=== PATIENT | male | born 1980 | race Asian ===

== ENCOUNTER 2022-06-10 14:44 | Emergency (ER) | payer OTHER ==
[~2022-06-10] VITALS: Ht 167.6 cm; Wt 55.0 kg
[2022-06-10 15:44] VITALS: BP 146/64
[2022-06-10] MEDS ORDERED: ATOR10TA PO (15:47)
[2022-06-10] MEDS ORDERED: ASPI-1450 PO (15:47)
[2022-06-10] MEDS ORDERED: AMLO2.5T96 PO (15:47)
[2022-06-10] MEDS ORDERED: ASPI-1444 PO (15:49)
[2022-06-10] MEDS ORDERED: OMEG1CAP31 PO (15:49)
[2022-06-10] MEDS ORDERED: IRBE300T18 PO (15:49)
[2022-06-10] MEDS ORDERED: ATOR20TA65 PO (15:49)
[2022-06-10] MEDS ORDERED: AMLO5TAB66 PO (15:49)
[2022-06-10 16:06] LABS: COVID AG,FIA SOURCE NASAL SWAB
[2022-06-10 16:31] LABS: INFLUENZA TYPE A NEGATIVE FOR TYPE A (NEGATIVE); INFLUENZA TYPE B NEGATIVE FOR TYPE B (NEGATIVE)
[2022-06-10] MEDS ORDERED: BENZ-70 PO (19:58)
== END 2022-06-10 20:31 | disposition home or self-care (01) ==
LOC: EMS 14:55
DX: J06.9 Acute upper respiratory infection, unspecified (principal); I10 Essential (primary) hypertension; E78.00 Pure hypercholesterolemia, unspecified; Z20.822 Contact with and (suspected) exposure to COVID-19
CPT/HCPCS: 87804; 99283